=== PATIENT | male | born 1975 | race Caucasian/White ===

== ENCOUNTER → 2018-08-29 | Outpatient (CLI) | payer MEDICARE, OTHER ==
[2015-08-10 09:59] VITALS: BP 106/51
[~2018-08-29] MED LIST: ACET325T9 PO; ACET500T68 PO; BARIUM SULFATE 60% 355 ML SUSP PO ONE; CIPR500T94 PO; DIVA500T17 PO; DOCU100T5 PO; ESCITALOPRAM OX10 MG PO; FLUT16SP NS; GUAI100L12 PO; LACT10SO26 PO; LORA1TAB37 PO; MESA0.372 PO; METR250T PO; MONT10TA49 PO; MULT1TAB52 PO; OXCA300O PO; OXCA300T19 PO; POLY255P11 PO; POTA10TA PO; RISP1TAB3 PO; TRAZ150T49 PO; [UNRECOGNIZED DRUG - CODE] PO
--- NOTE | 2018-08-29 10:02 | RAD ---
Small bowel series, 08/29/2018: HISTORY: Abdominal pain The preliminary abdominal image demonstrates a nonspecific gas pattern. Serial digital images were obtained as well as fluoroscopic spot imaging. 0.4 minutes of fluoroscopy time was utilized. 4 fluoroscopic spot images were recorded. The small bowel loops are of normal caliber. No fold thickening is seen. The contrast material reached the right colon at 90 minutes. The terminal ileum cannot be clearly from other distal ileal loops, however, no distal ileal abnormality is detected. IMPRESSION: No significant abnormality is identified. Electronically signed by: Jean Marie Melendez MD (08/29/2018 9:59 AM) [facility]
== END | disposition home or self-care (01) ==
LOC: RAD 07:18
PROVIDERS: ATTEND Internal Medicine Gastroenterology
DX: R10.9 Unspecified abdominal pain (principal); F63.9 Impulse disorder, unspecified; F84.0 Autistic disorder; F51.01 Primary insomnia; F79 Unspecified intellectual disabilities; N39.44 Nocturnal enuresis; J30.1 Allergic rhinitis due to pollen; R32 Unspecified urinary incontinence; Z79.899 Other long term (current) drug therapy
CPT/HCPCS: 74250

== ENCOUNTER 2019-05-01 12:28 | Observation (INO) | payer MEDICARE, MEDICAID ==
[~2019-05-01] VITALS: Ht 188 cm; Wt 96.0 kg
[~2019-05-01 12:28] MED LIST changes: -BARIUM SULFATE 60% 355 ML SUSP PO ONE
--- NOTE | 2019-05-01 12:51 | PHYS DOC ---
Past Medical History Past Medical History: Constipation, Other Additional Past Medical Histor: mentally challenged/autistic, Crohns, Ileus, impulse control,insomnia, Past Surgical History: No Surgical History Additional Past Surgical Histo: unknown Smoking Status: Never Smoker Alcohol Use: None Drug Use: None Adult General Chief Complaint Chief Complaint: ABDOMINAL PAIN HPI HPI Patient is a 43 year old male with past medical history significant for autism and Crohn's disease and currently follows along with a aircraft electronics technical officer. The patient is brought today by a caregiver from a assisted secondary to worsening abdominal pain over the past 5-6 days with alternating diarrhea and constipation. Patient reportedly saw his aircraft electronics technical officer yesterday and his pain became worse today so he was instructed to come to the ER for further evaluation. No fever or chills have been reported. Pain is moderate to severe with abdominal bloating and distention. Review of Systems Review of Systems All other ROS is negative un Current Medications Current Medications Current Medications Medications (Trade) Dose Ordered Sig/Lee Start Time Stop Time Status Last Admin Dose Admin Fentanyl Citrate (Fentanyl 2ml Vial) 50 mcg 1X ONCE 05/01/19 13:00 05/01/19 13:01 DC 05/01/19 13:12 50 MCG Info (CONTRAST GIVEN -- Rx MONITORING) 1 each PRN DAILY PRN 05/01/19 14:45 05/03/19 14:44 Iohexol (Omnipaque 300 Mg/ml) 75 ml 1X ONCE 05/01/19 14:45 05/01/19 14:46 DC 05/01/19 14:54 75 ML Sodium Chloride 1,000 ml @ 1,000 mls/hr 1X ONCE 05/01/19 13:00 05/01/19 13:59 DC 05/01/19 13:12 1,000 MLS/HR Allergies Allergies Allergies Coded Allergies Type Severity Reaction Last Updated Verified No Known Drug Allergies 08/15/13 No Physical Exam Physical Exam Constitutional: Well developed, well nourished, appears uncomfortable, non-toxic appearance. [] HENT: Normocephalic, atraumatic, bilateral external ears normal, oropharynx moist, no oral exudates, nose normal. [] Eyes: PERRLA, EOMI, conjunctiva normal, no discharge. [] Neck: Normal range of motion, no tenderness, supple, no stridor. [] Cardiovascular:Heart rate regular rhythm, no murmur [] Lungs & Thorax: Bilateral breath sounds clear to auscultation [] Abdomen: Hyperactive bowel sounds and mild to moderate abdominal distention but still soft. She is tenderness to palpation Skin: Warm, dry, no erythema, no rash. [] Back: No tenderness, no CVA tenderness. Extremities: No tenderness, no cyanosis, no clubbing, ROM intact, no edema. [] Neurologic: normal motor function, normal sensory function, no focal deficits noted. [] Current Patient Data Vital Signs Vital Signs Date Time Temp Pulse Resp B/P (MAP) Pulse Ox O2 Delivery O2 Flow Rate FiO2 05/01/19 13:19 72 136/72 (93) Room Air 05/01/19 12:35 98.2 14 98.2 Lab Values Laboratory Tests Test 05/01/19 13:18 White Blood Count 5.5 x10^3/uL (4.0-11.0) Red Blood Count 4.38 x10^6/uL (4.30-5.70) Hemoglobin 13.8 g/dL (13.0-17.5) Hematocrit 40.0 % (39.0-53.0) Mean Corpuscular Volume 91 fL (79-100) Mean Corpuscular Hemoglobin 31 pg (25-35) Mean Corpuscular Hemoglobin Concent 34 g/dL (31-37) Red Cell Distribution Width 13.1 % (11.5-14.5) Platelet Count 159 x10^3/uL (140-400) Neutrophils (%) (Auto) 54 % (31-73) Lymphocytes (%) (Auto) 33 % (24-48) Monocytes (%) (Auto) 12 % (0-9) H Eosinophils (%) (Auto) 1 % (0-3) Basophils (%) (Auto) 1 % (0-3) Neutrophils # (Auto) 3.0 x10^3/uL (1.8-7.7) Lymphocytes # (Auto) 1.8 x10^3/uL (1.0-4.8) Monocytes # (Auto) 0.7 x10^3/uL (0.0-1.1) Eosinophils # (Auto) 0.1 x10^3/uL (0.0-0.7) Basophils # (Auto) 0.0 x10^3/uL (0.0-0.2) Sodium Level 136 mmol/L (136-145) Potassium Level 3.5 mmol/L (3.5-5.1) Chloride Level 100 mmol/L (98-107) Carbon Dioxide Level 26 mmol/L (21-32) Anion Gap 10 (6-14) Blood Urea Nitrogen 3 mg/dL (8-26) L Creatinine 0.6 mg/dL (0.7-1.3) L Estimated GFR (Cockcroft-Gault) 145.7 BUN/Creatinine Ratio 5 (6-20) L Glucose Level 107 mg/dL (70-99) H Calcium Level 8.6 mg/dL (8.5-10.1) Total Bilirubin 0.3 mg/dL (0.2-1.0) Aspartate Amino Transferase (AST) 14 U/L (15-37) L Alanine Aminotransferase (ALT) 33 U/L (16-63) Alkaline Phosphatase 69 U/L (46-116) Total Protein 6.2 g/dL (6.4-8.2) L Albumin 3.3 g/dL (3.4-5.0) L Albumin/Globulin Ratio 1.1 (1.0-1.7) Lipase 81 U/L (73-393) Laboratory Tests 05/01/19 13:18 Laboratory Tests 05/01/19 13:18 EKG EKG [] Radiology/Procedures Radiology/Procedures EXAM: Frontal view of the chest, AP views of the abdomen in upright and supine positions. CLINICAL INDICATION: Abdominal pain and distention COMPARISON: None. FINDINGS and IMPRESSION: The heart is not enlarged. Mediastinal and hilar contours are normal. Right infrahilar and lung base airspace opacities likely atelectasis or developing consolidation. No pleural effusion or pneumothorax. No abnormal small or large bowel dilatation. Diffuse gaseous distention of the colon. No abnormal soft tissue mass effect. No suspicious calcifications are seen. No free intraperitoneal gas.[] EXAM: CT Abdomen and Pelvis with IV contrast CLINICAL HISTORY: Abd pain/distension . COMPARISON: none TECHNIQUE: Helical CT of the abdomen and pelvis was performed following the administration of IV contrast. Axial, coronal and sagittal reformatted images were generated. ---PQRS compliance statement - One or more of the following individualized dose reduction techniques were utilized for this study: 1. Automated exposure control 2. Adjustment of the mA and/or kV according to patient size 3. Use of iterative reconstruction technique--- FINDINGS: Lower chest: Lung bases are clear. Abdomen and pelvis: Liver and biliary system: Subcentimeter hypodense posterior right hepatic lobe lesion is too small to accurately characterize. Gallbladder is normal. No biliary ductal dilatation. Spleen: Unremarkable Pancreas: Unremarkable Adrenal glands: Unremarkable Kidneys: Symmetric nephrograms. No hydronephrosis. No hydroureter. Lymph nodes/retroperitoneum: No abdominal or pelvic lymphadenopathy. Vessels: Aorta is normal in caliber. Bowel/Peritoneal cavity: Moderate colonic stool content is seen. No small or large bowel dilatation. No bowel obstruction. Appendix is normal. No abdominal or pelvic ascites. Abdominal wall: Small fat-containing periumbilical hernia. Bladder: Bladder is distended, which can be correlated for possible voluntary or involuntary causes of urinary retention. Bones: Osseous structures are unremarkable. IMPRESSION: 1. No bowel obstruction. 2. Moderate colonic stool content is seen. No small or large bowel dilatation. 3. Bladder is distended, which can be correlated for possible voluntary or involuntary causes of urinary retention. 4. Appendix is normal. Electronically signed by: Antonio Troncoso MD (05/01/2019 3:08 PM) [facility] Course & Med Decision Making Course & Med Decision Making Pertinent Labs and Imaging studies reviewed. (See chart for details) 1248: I spoke to any who is a physician licensed investment sales assistant at the patient's gastroenterology clinic who informed me the patient has been to the ED 3 times within the past week and has had a CT scan which showed what appeared to be increased inflammation consistent with Crohn's flare. Since the patient has had worsening pain the gastroenterology clinic physicians would like the patient admitted for colonoscopy and pain control. The patient has failed outpatient prep for colonoscopy. No fever or chills have been reported recently. We will start an IV and given IV fluids and pain medication and check labs and obtain abdominal x-ray. 1417: W/u unremarkable except for gaseous distension of the colon. Will discuss with GI regarding admission. 1430: I spoke with Dr. Moya, GI, who would like repeat CT and discuss admission vs outpatient f/u. 1613: Patient's CT scan shows moderate fecal retention. The patient is started taking MiraLAX and lactulose for bowel regimen. I spoke with GI again regarding this patient and they will admit for possible scope tomorrow. Dragon Disclaimer Dragon Disclaimer This electronic medical record was generated, in whole or in part, using a voice recognition dictation system. Departure Departure Impression: Primary Impression: Abdominal pain Additional Impressions: Abdominal distension Fecal retention Disposition: ADMITTED INPATIENT Admitting Physician: YUNG (Dr. Castro) Condition: STABLE Referrals: AMNA GARCIA MD (PCP) Problem Qualifiers MARILIN GEE DO May 01, 2019 12:51
[2019-05-01] MEDS ORDERED: fentaNYL PF VIAL 100 MCG/2 ML VIAL IVP ONE (13:00)
[2019-05-01] MEDS ORDERED: IV NORMAL SALINE 1000ML BAG 1,000 ML IV ONE (13:00)
[2019-05-01 13:27] LABS: BASO % 1 % (0-3); EOS # 0.1 x10^3/uL (0.0-0.7); EOS % 1 % (0-3); HEMOGLOBIN 13.8 g/dL (13.0-17.5); LYMPH # 1.8 x10^3/uL (1.0-4.8); LYMPH % 33 % (24-48); MEAN CORPUSCULAR HEMOGLOBIN 31 pg (25-35); MEAN CORPUSCULAR HGB CONC 34 g/dL (31-37); MEAN CORPUSCULAR VOLUME 91 fL (79-100); MONO # 0.7 x10^3/uL (0.0-1.1); MONO % 12 % (0-9); NEUT % 54 % (31-73); PLATELET COUNT 159 x10^3/uL (140-400); RED BLOOD COUNT 4.38 x10^6/uL (4.30-5.70); RED CELL DISTRIBUTION WIDTH 13.1 % (11.5-14.5); WHITE BLOOD COUNT 5.5 x10^3/uL (4.0-11.0)
[2019-05-01 13:41] LABS: CALCIUM 8.6 mg/dL (8.5-10.1); CREATININE 0.6 mg/dL (0.7-1.3); GFR 145.7; POTASSIUM 3.5 mmol/L (3.5-5.1)
[2019-05-01 13:48] LABS: ALBUMIN 3.3 g/dL (3.4-5.0); ALBUMIN/GLOBULIN RATIO 1.1 (1.0-1.7); TOTAL BILIRUBIN 0.3 mg/dL (0.2-1.0); TOTAL PROTEIN 6.2 g/dL (6.4-8.2)
--- NOTE | 2019-05-01 14:06 | RAD ---
EXAM: Frontal view of the chest, AP views of the abdomen in upright and supine positions. CLINICAL INDICATION: Abdominal pain and distention COMPARISON: None. FINDINGS and IMPRESSION: The heart is not enlarged. Mediastinal and hilar contours are normal. Right infrahilar and lung base airspace opacities likely atelectasis or developing consolidation. No pleural effusion or pneumothorax. No abnormal small or large bowel dilatation. Diffuse gaseous distention of the colon. No abnormal soft tissue mass effect. No suspicious calcifications are seen. No free intraperitoneal gas. Electronically signed by: Antonio Troncoso MD (05/01/2019 2:03 PM) [facility]
[2019-05-01] MEDS ORDERED: IOHEXOL 300 MG/ML 100ML VIAL. IV ONE (14:45)
[2019-05-01] MEDS ORDERED: CONTRAST GIVEN. MC PRN (14:45)
--- NOTE | 2019-05-01 15:11 | RAD ---
EXAM: CT Abdomen and Pelvis with IV contrast CLINICAL HISTORY: Abd pain/distension . COMPARISON: none TECHNIQUE: Helical CT of the abdomen and pelvis was performed following the administration of IV contrast. Axial, coronal and sagittal reformatted images were generated. ---PQRS compliance statement - One or more of the following individualized dose reduction techniques were utilized for this study: 1. Automated exposure control 2. Adjustment of the mA and/or kV according to patient size 3. Use of iterative reconstruction technique--- FINDINGS: Lower chest: Lung bases are clear. Abdomen and pelvis: Liver and biliary system: Subcentimeter hypodense posterior right hepatic lobe lesion is too small to accurately characterize. Gallbladder is normal. No biliary ductal dilatation. Spleen: Unremarkable Pancreas: Unremarkable Adrenal glands: Unremarkable Kidneys: Symmetric nephrograms. No hydronephrosis. No hydroureter. Lymph nodes/retroperitoneum: No abdominal or pelvic lymphadenopathy. Vessels: Aorta is normal in caliber. Bowel/Peritoneal cavity: Moderate colonic stool content is seen. No small or large bowel dilatation. No bowel obstruction. Appendix is normal. No abdominal or pelvic ascites. Abdominal wall: Small fat-containing periumbilical hernia. Bladder: Bladder is distended, which can be correlated for possible voluntary or involuntary causes of urinary retention. Bones: Osseous structures are unremarkable. IMPRESSION: 1. No bowel obstruction. 2. Moderate colonic stool content is seen. No small or large bowel dilatation. 3. Bladder is distended, which can be correlated for possible voluntary or involuntary causes of urinary retention. 4. Appendix is normal. Electronically signed by: Antonio Troncoso MD (05/01/2019 3:08 PM) [facility]
[2019-05-01] MEDS ORDERED: ONDANSETRON PF 4 MG/2 ML VIAL. IV PRN ×2 (16:15→16:30)
[2019-05-01] MEDS ORDERED: fentaNYL PF VIAL 100 MCG/2 ML VIAL IV PRN (16:15)
[2019-05-01] MEDS ORDERED: ACETAMINOPHEN 500 MG TABLET PO PRN (16:30)
[2019-05-01] MEDS ORDERED: ALBUTEROL SULFATE 2.5 MG/3 ML NEBU. NEB PRN (16:30)
[2019-05-01] MEDS ORDERED: guaiFENesin ORAL 200 MG/10 ML LIQUID. PO PRN (16:30)
[2019-05-01] MEDS ORDERED: ACETAMINOPHEN 325 MG TABLET. PO PRN (16:30)
[2019-05-01] MEDS ORDERED: DOCUSATE SODIUM 100 MG CAPSULE. PO PRN (16:30)
[2019-05-01] MEDS ORDERED: ZOLPIDEM 5 MG TABLET. PO PRN (16:30)
--- NOTE | 2019-05-01 16:59 | PDOC2 ---
GI CONSULT Reason For Consult: Crohn's, abd pain HPI: HPI: 43 y/o male seen in ER. H/o autism w/ some aggressive behavior, mostly non- verbal. Mother Laxmi and caregiver Shannan provide history, also previously d/w PA from our office and ER physician. Chronic abd pain for >1 year w/ intermittent flares of more severe pain. Pain has been worse for about a week - usually not this bad and doesn't last this long. Caregiver thinks the pain is spasming and cramping because he seems okay and then suddenly doubles over in pain and gets very agitated. Seems mostly located in the middle. Also holds abdomen when stooling sometimes. H/o alternating bowel habits - chronic and unchanged - either watery and splattering or straining to pass very small soft stools. Caregiver says it's not unusual for him to strain and try to have a stool 12 times in an 8 hour period without much result. Takes Miralax daily. Pain might be better after stooling but hard to tell. Also improved for a time w/ dicyclomine. Associated w/ decreased appetite - mostly has been requesting cereal. No vomiting. Unclear if has nausea or reflux. No dysphagia they have observed. No hematochezia or melena. No weight loss. Abdomen has been intermittently more distended over the past year - usually improved after passing gas. During the past week, they have been to [facility] the [facility], [facility] ER on the [place] (where a CT showed "inflammation of the stomach lining" per caregiver - these records were requested but not received at our office), and had two crisis visits w/ psych @ [facility] (last on Sunday I believe). He was seen in our office and outpt EGD and colonoscopy were recommended; however, mother and caregiver state that he would not tolerate prepping at home because he would not understand why he would need to keep to a clear liquid diet and would likely help himself to other available food and become agitated. They are also currently concerned about him taking his usual psych meds. He has a h/o Crohn's disease. Had colonoscopy by Dr. Larua Wilson in 09/2013 - cannot view procedure report but pathology showed chronic colitis w/ acute cryptitis and ill-defined granulomas. Has been on Apriso. Mother reports was hospitalized at [facility] in [place] in 06/2018 with a blockage. Says surgery was discussed but "then he passed it." SBFT in 08/2018 (done here at [facility]) was unrevealing. No liver, GB, pancreas, or PUD history. No previous EGD. Today's labs and CT as below. PMH: PMH: autism, Crohn's FH: Family History: Cancer (pancreatic - father), Hypertension Social History: Smoke: No ALCOHOL: none Drugs: None ROS: Per mother and caregiver as above. Vitals: Vitals: Vital Signs Date Time Temp Pulse Resp B/P (MAP) Pulse Ox O2 Delivery O2 Flow Rate FiO2 05/01/19 13:19 72 136/72 (93) Room Air 05/01/19 12:35 98.2 14 98.2 Labs: Labs: Laboratory Tests Test 05/01/19 13:18 White Blood Count 5.5 x10^3/uL (4.0-11.0) Red Blood Count 4.38 x10^6/uL (4.30-5.70) Hemoglobin 13.8 g/dL (13.0-17.5) Hematocrit 40.0 % (39.0-53.0) Mean Corpuscular Volume 91 fL (79-100) Mean Corpuscular Hemoglobin 31 pg (25-35) Mean Corpuscular Hemoglobin Concent 34 g/dL (31-37) Red Cell Distribution Width 13.1 % (11.5-14.5) Platelet Count 159 x10^3/uL (140-400) Neutrophils (%) (Auto) 54 % (31-73) Lymphocytes (%) (Auto) 33 % (24-48) Monocytes (%) (Auto) 12 % (0-9) Eosinophils (%) (Auto) 1 % (0-3) Basophils (%) (Auto) 1 % (0-3) Neutrophils # (Auto) 3.0 x10^3/uL (1.8-7.7) Lymphocytes # (Auto) 1.8 x10^3/uL (1.0-4.8) Monocytes # (Auto) 0.7 x10^3/uL (0.0-1.1) Eosinophils # (Auto) 0.1 x10^3/uL (0.0-0.7) Basophils # (Auto) 0.0 x10^3/uL (0.0-0.2) Sodium Level 136 mmol/L (136-145) Potassium Level 3.5 mmol/L (3.5-5.1) Chloride Level 100 mmol/L (98-107) Carbon Dioxide Level 26 mmol/L (21-32) Anion Gap 10 (6-14) Blood Urea Nitrogen 3 mg/dL (8-26) Creatinine 0.6 mg/dL (0.7-1.3) Estimated GFR (Cockcroft-Gault) 145.7 BUN/Creatinine Ratio 5 (6-20) Glucose Level 107 mg/dL (70-99) Calcium Level 8.6 mg/dL (8.5-10.1) Total Bilirubin 0.3 mg/dL (0.2-1.0) Aspartate Amino Transf (AST/SGOT) 14 U/L (15-37) Alanine Aminotransferase (ALT/SGPT) 33 U/L (16-63) Alkaline Phosphatase 69 U/L (46-116) Total Protein 6.2 g/dL (6.4-8.2) Albumin 3.3 g/dL (3.4-5.0) Albumin/Globulin Ratio 1.1 (1.0-1.7) Lipase 81 U/L (73-393) Allergies: Coded Allergies: No Known Drug Allergies (Unverified , 08/15/13) Medications: Current Medications Medications (Trade) Dose Ordered Sig/Lee Route PRN Reason Start Time Stop Time Status Last Admin Dose Admin Fentanyl Citrate (Fentanyl 2ml Vial) 50 mcg 1X ONCE IVP 05/01/19 13:00 05/01/19 13:01 DC 05/01/19 13:12 Sodium Chloride 1,000 ml @ 1,000 mls/hr 1X ONCE IV 05/01/19 13:00 05/01/19 13:59 DC 05/01/19 13:12 Iohexol (Omnipaque 300 Mg/ml) 75 ml 1X ONCE IV 05/01/19 14:45 05/01/19 14:46 DC 05/01/19 14:54 Imaging: Imaging: [facility] 05/01 IMPRESSION: The heart is not enlarged. Mediastinal and hilar contours are normal. Right infrahilar and lung base airspace opacities likely atelectasis or developing consolidation. No pleural effusion or pneumothorax. No abnormal small or large bowel dilatation. Diffuse gaseous distention of the colon. No abnormal soft tissue mass effect. No suspicious calcifications are seen. No free intraperitoneal gas. CT A/P w/ IV contrast 05/01 FINDINGS: Lower chest: Lung bases are clear. Abdomen and pelvis: Liver and biliary system: Subcentimeter hypodense posterior right hepatic lobe lesion is too small to accurately characterize. Gallbladder is normal. No biliary ductal dilatation. Spleen: Unremarkable Pancreas: Unremarkable Adrenal glands: Unremarkable Kidneys: Symmetric nephrograms. No hydronephrosis. No hydroureter. Lymph nodes/retroperitoneum: No abdominal or pelvic lymphadenopathy. Vessels: Aorta is normal in caliber. Bowel/Peritoneal cavity: Moderate colonic stool content is seen. No small or large bowel dilatation. No bowel obstruction. Appendix is normal. No abdominal or pelvic ascites. Abdominal wall: Small fat-containing periumbilical hernia. Bladder: Bladder is distended, which can be correlated for possible voluntary or involuntary causes of urinary retention. Bones: Osseous structures are unremarkable. IMPRESSION: 1. No bowel obstruction. 2. Moderate colonic stool content is seen. No small or large bowel dilatation. 3. Bladder is distended, which can be correlated for possible voluntary or involuntary causes of urinary retention. 4. Appendix is normal. PE: GEN: NAD HEENT: Atraumatic, PERRL LUNGS: CTAB HEART: RRR ABD: NABS, S/ND/NT - per advice of caregiver and mother, I asked "hurt or not?" while palpating - he says "not" in each location EXTREMITY: No edema SKIN: left ankle/foot w/ purple bruising, laceration on forehead - caregiver says he has a h/o banging his head on the wall when agitated but isn't sure what happened to his foot NEURO/PSYCH: A & O 3 A/P: A/P: Acute on chronic abdominal pain, decreased appetite Irregular bowel habits - chronic - ?constipation Crohn's - on colonoscopy in 2013, on Apriso, normal SBFT 08/2018 ?h/o bowel obstruction - at [facility] in 06/2018 Autism -- Plans to admit to hospitalist. Clear liquids okay for now, okay to take normal meds including mesalamine. Add empiric acid-[employer]. Check CRP. Request records from CT at [facility]. Dr. Moya will see him this evening, Dr. Nice returns tomorrow. SHANNAN LYON May 01, 2019 16:59
[2019-05-01] MEDS ORDERED: risperiDONE 0.25 MG TABLET. PO PRN (17:00)
[2019-05-01] MEDS ORDERED: DICYCLOMINE HCL 10 MG CAPSULE PO PRN (17:00)
--- NOTE | 2019-05-01 17:01 | PDOC1 ---
History and Physical Date of Admission Date of Admission 05/01/19 Source Source: Chart review History of Present Illness History of Present Illness Patient is a 43-year-old autistic gentleman with lives in a longterm at [facility] who was in his usual state of health until approximately 5 days prior to his admission. History is taken from report of ER physician and with the help from patient's mother who is at bedside. Patient is somewhat verbal but unable to communicate and provide details for the history. Story is that he was diagnosed with Crohn's disease in 2013 and seems to have been well controlled but 5 days prior to his admission the patient started experiencing abdominal discomfort seems like and this prompted behavioral changes with him actually banging his head on the wall due to the discomfort. Given that the patient is unable to communicate his symptoms he gets quite frustrated. At the time of my note the patient seems to be calm but there is evidence of trauma on his forehead as a consequence of the events during this week. He is not guarding his abdomen no fever or chills have been reported no recent changes to his medications he has had increased in the pattern of his stools and also has had changes in the caliber of stools. Patient has not had hematochezia no melanotic stools have been reported. Have been asked to admit the patient to our service for GI evaluation Past Medical History Cardiovascular: No pertinent hx Pulmonary: No pertinent hx GI: Constipation, Hemorrhoids, Other Heme/Onc: No pertinent hx Hepatobiliary: No pertinent hx Psych: Other Rheumatologic: No pertinent hx Infectious disease: No pertinent hx Renal/: No pertinent hx Endocrine: No pertinent hx Past Surgical History Past Surgical History: No pertinent history Family History Family History: No Significant Current Problem List Problem List Problems Medical Problems: (1) Abdominal distension Status: Acute (2) Abdominal pain Status: Acute (3) Fecal retention Status: Acute Current Medications Current Medications Current Medications Medications (Trade) Dose Ordered Sig/Lee Start Time Stop Time Status Last Admin Dose Admin Acetaminophen (Tylenol) 500 mg PRN Q6HRS PRN 05/01/19 16:30 05/01/19 16:46 DC Albuterol Sulfate (Ventolin Neb Soln) 2.5 mg PRN Q4HRS PRN 05/01/19 16:30 Divalproex Sodium (Depakote Er) 500 mg DAILY 05/02/19 09:00 UNV Docusate Sodium (Colace) 100 mg PRN BID PRN 05/01/19 16:30 Fentanyl Citrate (Fentanyl 2ml Vial) 50 mcg PRN Q3HRS PRN 05/01/19 16:15 Fluticasone Propionate (Flonase) 1 spray DAILY 05/02/19 09:00 UNV Guaifenesin (Robitussin) 200 mg PRN Q4HRS PRN 05/01/19 16:30 Info (CONTRAST GIVEN -- Rx MONITORING) 1 each PRN DAILY PRN 05/01/19 14:45 05/03/19 14:44 Iohexol (Omnipaque 300 Mg/ml) 75 ml 1X ONCE 05/01/19 14:45 05/01/19 14:46 DC 05/01/19 14:54 75 ML Lorazepam (Ativan) 0.5 mg PRN Q4HRS PRN 05/01/19 16:30 Montelukast Sodium (Singulair) 10 mg DAILY 05/02/19 09:00 Non-Formulary Medication (Escitalopram Oxalate ) 5 mg DAILY 05/02/19 09:00 UNV Non-Formulary Medication (Lactulose ) 10 gm PRN DAILY 05/01/19 16:30 UNV Non-Formulary Medication (Loratadine/ Pseudoephedrine (Loratadine-D 24HR Tablet)) 1 each PRN DAILY PRN 05/01/19 16:30 UNV Non-Formulary Medication (Mesalamine (Apriso)) 1.5 gm DAILY 05/02/19 09:00 UNV Non-Formulary Medication (Multivitamin (Multivitamins)) 1 each DAILY 05/02/19 09:00 UNV Non-Formulary Medication (Potassium Chloride (K-Tab)) 10 meq DAILY 05/02/19 09:00 UNV Non-Formulary Medication (Risperidone (Risperidone Odt)) 0.5 mg PRN BID PRN 05/01/19 16:30 UNV Non-Formulary Medication (Trazodone Hcl ) 1 tab QHS 05/01/19 21:00 UNV Ondansetron HCl (Zofran) 4 mg PRN Q4HRS PRN 05/01/19 16:30 Oxcarbazepine (Trileptal) 300 mg BID 05/01/19 21:00 UNV Polyethylene Glycol (miraLAX Powder BULK BOTTLE) 17 gm DAILY 05/02/19 09:00 Risperidone (RisperDAL) 1 mg QID 05/01/19 17:00 UNV Sodium Chloride 1,000 ml @ 1,000 mls/hr 1X ONCE 05/01/19 13:00 05/01/19 13:59 DC 05/01/19 13:12 1,000 MLS/HR Zolpidem Tartrate (Ambien) 5 mg PRN QHS PRN 05/01/19 16:30 Allergies Allergies Allergies Coded Allergies Type Severity Reaction Last Updated Verified No Known Drug Allergies 08/15/13 No ROS Review of System CONSTITUTIONAL: No fever or chills EYES: No recent changes SKIN: No rash or itching CARDIOVASCULAR: No chest pain, syncope, palpitations, or edema RESPIRATORY: No SOB or cough GASTROINTESTINAL: No nausea, vomiting or abdominal pain NEUROLOGICAL: No headaches or weakness ENDOCRINE: No cold or heat intolerance GENITOURINARY: No urgency or frequency of urination MUSCULOSKELETAL: No back pain or joint pain LYMPHATICS: No enlarged lymph nodes PSYCHIATRIC: No anxiety or depression Physical Exam Physical Exam GEN.: No apparent distress. Alert and oriented. HEENT: Head is normocephalic, trauma to the forehead approximately 2 cm linear wound in the healing process NECK: Supple. LUNGS: Clear to auscultation. HEART: RRR, S1, S2 present. Peripheral pulses intact ABDOMEN: Soft, nontender. Positive bowel sounds. EXTREMITIES: Without any cyanosis. NEUROLOGIC: Cranial nerves II-12 intact no motor or sensory deficits appreciated PSYCHIATRIC: Unable to assess SKIN: No ulcerations Vitals Vitals Vital Signs Date Time Temp Pulse Resp B/P (MAP) Pulse Ox O2 Delivery O2 Flow Rate FiO2 05/01/19 13:19 72 136/72 (93) Room Air 05/01/19 12:35 98.2 14 98.2 Labs Labs Laboratory Tests Test 05/01/19 13:18 White Blood Count 5.5 x10^3/uL (4.0-11.0) Red Blood Count 4.38 x10^6/uL (4.30-5.70) Hemoglobin 13.8 g/dL (13.0-17.5) Hematocrit 40.0 % (39.0-53.0) Mean Corpuscular Volume 91 fL (79-100) Mean Corpuscular Hemoglobin 31 pg (25-35) Mean Corpuscular Hemoglobin Concent 34 g/dL (31-37) Red Cell Distribution Width 13.1 % (11.5-14.5) Platelet Count 159 x10^3/uL (140-400) Neutrophils (%) (Auto) 54 % (31-73) Lymphocytes (%) (Auto) 33 % (24-48) Monocytes (%) (Auto) 12 % (0-9) Eosinophils (%) (Auto) 1 % (0-3) Basophils (%) (Auto) 1 % (0-3) Neutrophils # (Auto) 3.0 x10^3/uL (1.8-7.7) Lymphocytes # (Auto) 1.8 x10^3/uL (1.0-4.8) Monocytes # (Auto) 0.7 x10^3/uL (0.0-1.1) Eosinophils # (Auto) 0.1 x10^3/uL (0.0-0.7) Basophils # (Auto) 0.0 x10^3/uL (0.0-0.2) Sodium Level 136 mmol/L (136-145) Potassium Level 3.5 mmol/L (3.5-5.1) Chloride Level 100 mmol/L (98-107) Carbon Dioxide Level 26 mmol/L (21-32) Anion Gap 10 (6-14) Blood Urea Nitrogen 3 mg/dL (8-26) Creatinine 0.6 mg/dL (0.7-1.3) Estimated GFR (Cockcroft-Gault) 145.7 BUN/Creatinine Ratio 5 (6-20) Glucose Level 107 mg/dL (70-99) Calcium Level 8.6 mg/dL (8.5-10.1) Total Bilirubin 0.3 mg/dL (0.2-1.0) Aspartate Amino Transf (AST/SGOT) 14 U/L (15-37) Alanine Aminotransferase (ALT/SGPT) 33 U/L (16-63) Alkaline Phosphatase 69 U/L (46-116) Total Protein 6.2 g/dL (6.4-8.2) Albumin 3.3 g/dL (3.4-5.0) Albumin/Globulin Ratio 1.1 (1.0-1.7) Lipase 81 U/L (73-393) Laboratory Tests Test 05/01/19 13:18 White Blood Count 5.5 x10^3/uL (4.0-11.0) Red Blood Count 4.38 x10^6/uL (4.30-5.70) Hemoglobin 13.8 g/dL (13.0-17.5) Hematocrit 40.0 % (39.0-53.0) Mean Corpuscular Volume 91 fL (79-100) Mean Corpuscular Hemoglobin 31 pg (25-35) Mean Corpuscular Hemoglobin Concent 34 g/dL (31-37) Red Cell Distribution Width 13.1 % (11.5-14.5) Platelet Count 159 x10^3/uL (140-400) Neutrophils (%) (Auto) 54 % (31-73) Lymphocytes (%) (Auto) 33 % (24-48) Monocytes (%) (Auto) 12 % (0-9) Eosinophils (%) (Auto) 1 % (0-3) Basophils (%) (Auto) 1 % (0-3) Neutrophils # (Auto) 3.0 x10^3/uL (1.8-7.7) Lymphocytes # (Auto) 1.8 x10^3/uL (1.0-4.8) Monocytes # (Auto) 0.7 x10^3/uL (0.0-1.1) Eosinophils # (Auto) 0.1 x10^3/uL (0.0-0.7) Basophils # (Auto) 0.0 x10^3/uL (0.0-0.2) Sodium Level 136 mmol/L (136-145) Potassium Level 3.5 mmol/L (3.5-5.1) Chloride Level 100 mmol/L (98-107) Carbon Dioxide Level 26 mmol/L (21-32) Anion Gap 10 (6-14) Blood Urea Nitrogen 3 mg/dL (8-26) Creatinine 0.6 mg/dL (0.7-1.3) Estimated GFR (Cockcroft-Gault) 145.7 BUN/Creatinine Ratio 5 (6-20) Glucose Level 107 mg/dL (70-99) Calcium Level 8.6 mg/dL (8.5-10.1) Total Bilirubin 0.3 mg/dL (0.2-1.0) Aspartate Amino Transf (AST/SGOT) 14 U/L (15-37) Alanine Aminotransferase (ALT/SGPT) 33 U/L (16-63) Alkaline Phosphatase 69 U/L (46-116) Total Protein 6.2 g/dL (6.4-8.2) Albumin 3.3 g/dL (3.4-5.0) Albumin/Globulin Ratio 1.1 (1.0-1.7) Lipase 81 U/L (73-393) VTE Prophylaxis Ordered VTE Prophylaxis Devices: Yes VTE Pharmacological Prophylaxi: No Assessment/Plan Assessment/Plan Abdominal pain Crohn's disease Constipation? Autism Plan Consult GI Resume home meds Caregiver at [facility] is bringing behavioral plan so nursing staff and ancillary staff know how to deal with his behavior Further recommendations based on the clinical course DVT prophylaxis with SCD EVAN WIGGINS MD May 01, 2019 17:01
[2019-05-01] MEDS ORDERED: LACTULOSE 20 GM/30 ML SOLUTION. PO PRN (17:15)
--- NOTE | 2019-05-01 18:07 | NUR ---
This RN received report from HAYLEY Rg in ER at 1730. Pt arrived on unit at approx 1800 with family at bedside. Pt in bed with two side rails up, call light within reach. Dinner tray ordered for pt by this RN. Will continue to monitor.
[2019-05-01 18:15] VITALS: BP 166/88
[2019-05-01] MEDS: risperiDONE 1 MG TABLET. PO SCH ×2 (18:30→20:04)
[2019-05-01] MEDS: OXcarbazepine 300 MG TABLET PO SCH (20:03)
[2019-05-01] MEDS: LORazepam 0.5 MG TABLET PO PRN (20:04)
[2019-05-01] MEDS ORDERED: FAMOTIDINE 20 MG TABLET. PO SCH (21:00)
[2019-05-01] MEDS ORDERED: DIVALPROEX EXTENDED RELEASE 500 MG TAB.ER.24H. PO SCH (21:00)
[2019-05-01] MEDS ORDERED: traZODone 50 MG TABLET. PO SCH (21:00)
[2019-05-01] MEDS ORDERED: DICY20TA3 PO (22:47)
[2019-05-01] MEDS ORDERED: RISP1TAB3 PO (22:47)
[2019-05-01] MEDS ORDERED: RISP0.2516 PO (22:47)
[2019-05-01] MEDS ORDERED: POTA20TA4 PO (22:47)
[2019-05-01] MEDS ORDERED: LORA-434 PO (22:47)
[2019-05-01] MEDS ORDERED: QUET50TA5 PO (22:47)
[2019-05-01] MEDS ORDERED: RISP2TAB3 PO (22:47)
[2019-05-01] MEDS ORDERED: PROP20TA PO (22:47)
[2019-05-01] MEDS ORDERED: DIPH25TA24 PO (22:47)
[2019-05-02 03:30] VITALS: BP 110/66
[2019-05-02] MEDS: LORazepam 0.5 MG TABLET PO PRN (06:32)
[2019-05-02 07:00] VITALS: BP 150/86
[2019-05-02] MEDS ORDERED: POLYETHYLENE GLYCOL 3350 BTL 238 GM POWDER PO ONE (07:45)
[2019-05-02] MEDS ORDERED: POTASSIUM CHLORIDE 10 MEQ TABLET.ER. PO SCH (08:00)
[2019-05-02] MEDS: risperiDONE 1 MG TABLET. PO SCH ×3 (08:56→16:10)
[2019-05-02] MEDS: OXcarbazepine 300 MG TABLET PO SCH (08:56)
[2019-05-02] MEDS ORDERED: MULTIVITAMIN with MINERAL TABLET. PO SCH (09:00)
[2019-05-02] MEDS ORDERED: POLYETHYLENE GLYCOL 3350 17 GM PACKET. PO SCH (09:00)
[2019-05-02] MEDS ORDERED: CETIRIZINE HCL 10 MG TABLET. PO PRN (09:00)
[2019-05-02] MEDS ORDERED: FLUTICASONE 50MCG/NASAL SPRAY 16GM BOTTLE. NS SCH (09:00)
[2019-05-02] MEDS ORDERED: MONTELUKAST SODIUM 10 MG TABLET. PO SCH (09:00)
[2019-05-02] MEDS ORDERED: DIVALPROEX EXTENDED RELEASE 500 MG TAB.ER.24H. PO SCH (09:00)
[2019-05-02] MEDS ORDERED: CITALOPRAM 10 MG TABLET. PO SCH (09:00)
[2019-05-02] MEDS ORDERED: MESALAMINE 1.5 GM PO SCH (09:00)
[2019-05-02 11:00] VITALS: BP 105/68
--- NOTE | 2019-05-02 11:07 | PDOC ---
PROGRESS NOTES Chief Complaint Chief Complaint Abdominal pain currently improved Crohn's disease Constipation? Autism History of Present Illness History of Present Illness No acute events reported overnight, case discussed with nursing staff patient in no acute distress no complaints during my visit Vitals Vitals Vital Signs Date Time Temp Pulse Resp B/P (MAP) Pulse Ox O2 Delivery O2 Flow Rate FiO2 05/02/19 07:00 97.5 64 18 150/86 (107) 94 Room Air 97.5 Physical Exam Physical Exam GEN.: No apparent distress. Alert and oriented. HEENT: Head is normocephalic, trauma to the forehead approximately 2 cm linear wound in the healing process NECK: Supple. LUNGS: Clear to auscultation. HEART: RRR, S1, S2 present. Peripheral pulses intact ABDOMEN: Soft, nontender. Positive bowel sounds. EXTREMITIES: Without any cyanosis. NEUROLOGIC: Cranial nerves II-12 intact no motor or sensory deficits appreciated PSYCHIATRIC: Unable to assess SKIN: No ulcerations Labs LABS Laboratory Tests Test 05/01/19 13:18 White Blood Count 5.5 x10^3/uL (4.0-11.0) Red Blood Count 4.38 x10^6/uL (4.30-5.70) Hemoglobin 13.8 g/dL (13.0-17.5) Hematocrit 40.0 % (39.0-53.0) Mean Corpuscular Volume 91 fL (79-100) Mean Corpuscular Hemoglobin 31 pg (25-35) Mean Corpuscular Hemoglobin Concent 34 g/dL (31-37) Red Cell Distribution Width 13.1 % (11.5-14.5) Platelet Count 159 x10^3/uL (140-400) Neutrophils (%) (Auto) 54 % (31-73) Lymphocytes (%) (Auto) 33 % (24-48) Monocytes (%) (Auto) 12 % (0-9) Eosinophils (%) (Auto) 1 % (0-3) Basophils (%) (Auto) 1 % (0-3) Neutrophils # (Auto) 3.0 x10^3/uL (1.8-7.7) Lymphocytes # (Auto) 1.8 x10^3/uL (1.0-4.8) Monocytes # (Auto) 0.7 x10^3/uL (0.0-1.1) Eosinophils # (Auto) 0.1 x10^3/uL (0.0-0.7) Basophils # (Auto) 0.0 x10^3/uL (0.0-0.2) Sodium Level 136 mmol/L (136-145) Potassium Level 3.5 mmol/L (3.5-5.1) Chloride Level 100 mmol/L (98-107) Carbon Dioxide Level 26 mmol/L (21-32) Anion Gap 10 (6-14) Blood Urea Nitrogen 3 mg/dL (8-26) Creatinine 0.6 mg/dL (0.7-1.3) Estimated GFR (Cockcroft-Gault) 145.7 BUN/Creatinine Ratio 5 (6-20) Glucose Level 107 mg/dL (70-99) Calcium Level 8.6 mg/dL (8.5-10.1) Total Bilirubin 0.3 mg/dL (0.2-1.0) Aspartate Amino Transf (AST/SGOT) 14 U/L (15-37) Alanine Aminotransferase (ALT/SGPT) 33 U/L (16-63) Alkaline Phosphatase 69 U/L (46-116) C-Reactive Protein, Quantitative 2.1 mg/L (0-3.3) Total Protein 6.2 g/dL (6.4-8.2) Albumin 3.3 g/dL (3.4-5.0) Albumin/Globulin Ratio 1.1 (1.0-1.7) Lipase 81 U/L (73-393) Assessment and Plan Assessmemt and Plan Problems Medical Problems: (1) Abdominal distension Status: Acute (2) Abdominal pain Status: Acute (3) Fecal retention Status: Acute Comment Review of Relevant I have reviewed the following items masood (where applicable) has been applied. Labs Laboratory Tests Test 05/01/19 13:18 White Blood Count 5.5 x10^3/uL (4.0-11.0) Red Blood Count 4.38 x10^6/uL (4.30-5.70) Hemoglobin 13.8 g/dL (13.0-17.5) Hematocrit 40.0 % (39.0-53.0) Mean Corpuscular Volume 91 fL (79-100) Mean Corpuscular Hemoglobin 31 pg (25-35) Mean Corpuscular Hemoglobin Concent 34 g/dL (31-37) Red Cell Distribution Width 13.1 % (11.5-14.5) Platelet Count 159 x10^3/uL (140-400) Neutrophils (%) (Auto) 54 % (31-73) Lymphocytes (%) (Auto) 33 % (24-48) Monocytes (%) (Auto) 12 % (0-9) Eosinophils (%) (Auto) 1 % (0-3) Basophils (%) (Auto) 1 % (0-3) Neutrophils # (Auto) 3.0 x10^3/uL (1.8-7.7) Lymphocytes # (Auto) 1.8 x10^3/uL (1.0-4.8) Monocytes # (Auto) 0.7 x10^3/uL (0.0-1.1) Eosinophils # (Auto) 0.1 x10^3/uL (0.0-0.7) Basophils # (Auto) 0.0 x10^3/uL (0.0-0.2) Sodium Level 136 mmol/L (136-145) Potassium Level 3.5 mmol/L (3.5-5.1) Chloride Level 100 mmol/L (98-107) Carbon Dioxide Level 26 mmol/L (21-32) Anion Gap 10 (6-14) Blood Urea Nitrogen 3 mg/dL (8-26) Creatinine 0.6 mg/dL (0.7-1.3) Estimated GFR (Cockcroft-Gault) 145.7 BUN/Creatinine Ratio 5 (6-20) Glucose Level 107 mg/dL (70-99) Calcium Level 8.6 mg/dL (8.5-10.1) Total Bilirubin 0.3 mg/dL (0.2-1.0) Aspartate Amino Transf (AST/SGOT) 14 U/L (15-37) Alanine Aminotransferase (ALT/SGPT) 33 U/L (16-63) Alkaline Phosphatase 69 U/L (46-116) C-Reactive Protein, Quantitative 2.1 mg/L (0-3.3) Total Protein 6.2 g/dL (6.4-8.2) Albumin 3.3 g/dL (3.4-5.0) Albumin/Globulin Ratio 1.1 (1.0-1.7) Lipase 81 U/L (73-393) Laboratory Tests Test 05/01/19 13:18 White Blood Count 5.5 x10^3/uL (4.0-11.0) Red Blood Count 4.38 x10^6/uL (4.30-5.70) Hemoglobin 13.8 g/dL (13.0-17.5) Hematocrit 40.0 % (39.0-53.0) Mean Corpuscular Volume 91 fL (79-100) Mean Corpuscular Hemoglobin 31 pg (25-35) Mean Corpuscular Hemoglobin Concent 34 g/dL (31-37) Red Cell Distribution Width 13.1 % (11.5-14.5) Platelet Count 159 x10^3/uL (140-400) Neutrophils (%) (Auto) 54 % (31-73) Lymphocytes (%) (Auto) 33 % (24-48) Monocytes (%) (Auto) 12 % (0-9) Eosinophils (%) (Auto) 1 % (0-3) Basophils (%) (Auto) 1 % (0-3) Neutrophils # (Auto) 3.0 x10^3/uL (1.8-7.7) Lymphocytes # (Auto) 1.8 x10^3/uL (1.0-4.8) Monocytes # (Auto) 0.7 x10^3/uL (0.0-1.1) Eosinophils # (Auto) 0.1 x10^3/uL (0.0-0.7) Basophils # (Auto) 0.0 x10^3/uL (0.0-0.2) Sodium Level 136 mmol/L (136-145) Potassium Level 3.5 mmol/L (3.5-5.1) Chloride Level 100 mmol/L (98-107) Carbon Dioxide Level 26 mmol/L (21-32) Anion Gap 10 (6-14) Blood Urea Nitrogen 3 mg/dL (8-26) Creatinine 0.6 mg/dL (0.7-1.3) Estimated GFR (Cockcroft-Gault) 145.7 BUN/Creatinine Ratio 5 (6-20) Glucose Level 107 mg/dL (70-99) Calcium Level 8.6 mg/dL (8.5-10.1) Total Bilirubin 0.3 mg/dL (0.2-1.0) Aspartate Amino Transf (AST/SGOT) 14 U/L (15-37) Alanine Aminotransferase (ALT/SGPT) 33 U/L (16-63) Alkaline Phosphatase 69 U/L (46-116) C-Reactive Protein, Quantitative 2.1 mg/L (0-3.3) Total Protein 6.2 g/dL (6.4-8.2) Albumin 3.3 g/dL (3.4-5.0) Albumin/Globulin Ratio 1.1 (1.0-1.7) Lipase 81 U/L (73-393) Medications Current Medications Fentanyl Citrate (Fentanyl 2ml Vial) 50 mcg 1X ONCE IVP Last administered on 05/01/19at 13:12; Start 05/01/19 at 13:00; Stop 05/01/19 at 13:01; Status DC Sodium Chloride 1,000 ml @ 1,000 mls/hr 1X ONCE IV Last administered on 05/01/19at 13:12; Start 05/01/19 at 13:00; Stop 05/01/19 at 13:59; Status DC Iohexol (Omnipaque 300 Mg/ml) 75 ml 1X ONCE IV Last administered on 05/01/19at 14:54; Start 05/01/19 at 14:45; Stop 05/01/19 at 14:46; Status DC Info (CONTRAST GIVEN -- Rx MONITORING) 1 each PRN DAILY PRN MC SEE COMMENTS; Start 05/01/19 at 14:45; Stop 05/03/19 at 14:44 Ondansetron HCl (Zofran) 4 mg PRN Q8HRS PRN IV NAUSEA/VOMITING; Start 05/01/19 at 16:15; Stop 05/01/19 at 17:07; Status DC Fentanyl Citrate (Fentanyl 2ml Vial) 50 mcg PRN Q3HRS PRN IV PAIN; Start 05/01/19 at 16:15 Ondansetron HCl (Zofran) 4 mg PRN Q4HRS PRN IV NAUSEA/VOMITING; Start 05/01/19 at 16:30 Zolpidem Tartrate (Ambien) 5 mg PRN QHS PRN PO INSOMNIA; Start 05/01/19 at 16:30 Acetaminophen (Tylenol) 650 mg PRN Q4HRS PRN PO TEMP OVER 100.4F OR MILD PAIN; Start 05/01/19 at 16:30 Docusate Sodium (Colace) 100 mg PRN BID PRN PO CONSTIPATION; Start 05/01/19 at 16:30 Albuterol Sulfate (Ventolin Neb Soln) 2.5 mg PRN Q4HRS PRN NEB SHORTNESS OF BREATH; Start 05/01/19 at 16:30 Guaifenesin (Robitussin) 200 mg PRN Q4HRS PRN PO COUGH; Start 05/01/19 at 16:30 Lorazepam (Ativan) 0.5 mg PRN Q4HRS PRN PO ANXIETY / AGITATION Last administered on 05/02/19at 06:32; Start 05/01/19 at 16:30 Acetaminophen (Tylenol) 500 mg PRN Q6HRS PRN PO MILD PAIN / TEMP; Start 05/01/19 at 16:30; Stop 05/01/19 at 16:46; Status DC Divalproex Sodium (Depakote Er) 1,000 mg HS PO Last administered on 05/01/19at 20:03; Start 05/01/19 at 21:00 Divalproex Sodium (Depakote Er) 500 mg DAILY PO Last administered on 05/02/19at 08:55; Start 05/02/19 at 09:00 Fluticasone Propionate (Flonase) 1 spray DAILY NS Last administered on 05/02/19at 08:56; Start 05/02/19 at 09:00 Montelukast Sodium (Singulair) 10 mg DAILY PO ; Start 05/02/19 at 09:00 Oxcarbazepine (Trileptal) 300 mg BID PO Last administered on 05/02/19at 08:56; Start 05/01/19 at 21:00 Polyethylene Glycol (miraLAX PACKET) 17 gm DAILY PO ; Start 05/02/19 at 09:00 Risperidone (RisperDAL) 1 mg QID PO Last administered on 05/02/19at 08:56; Start 05/01/19 at 17:00 Citalopram Hydrobromide (CeleXA) 10 mg DAILY PO ; Start 05/02/19 at 09:00 Lactulose (Lactulose) 10 gm PRN DAILY PRN PO CONSTIPATION; Start 05/01/19 at 17:15 Cetirizine HCl (ZyrTEC) 10 mg PRN DAILY PRN PO ALLERGIES; Start 05/02/19 at 09:00 Non-Formulary Medication (Mesalamine (Apriso)) 1.5 gm DAILY PO ; Start 05/02/19 at 09:00; Status UNV Multivitamins (Thera M Plus) 1 tab DAILY PO ; Start 05/02/19 at 09:00 Potassium Chloride (Klor-Con) 10 meq DAILYWBKFT PO ; Start 05/02/19 at 08:00 Risperidone (RisperDAL) 0.5 mg PRN BID PRN PO AGITATION; Start 05/01/19 at 17:00 Trazodone HCl (Desyrel) 150 mg QHS PO Last administered on 05/01/19at 20:03; Start 05/01/19 at 21:00 Famotidine (Pepcid) 20 mg QHS PO Last administered on 05/01/19at 20:02; Start 05/01/19 at 21:00 Dicyclomine HCl (Bentyl) 10 mg PRN QID PRN PO abd cramping; Start 05/01/19 at 17:00 Polyethylene Glycol (miraLAX Powder BULK BOTTLE) 238 gm 1X ONCE PO Last administered on 05/02/19at 08:13; Start 05/02/19 at 07:45; Stop 05/02/19 at 07:46; Status DC Active Scripts Active Apriso (Mesalamine) 0.375 Gm Cap.er.24h 1.5 Gm PO DAILY Loratadine-D 24HR Tablet (Loratadine/Pseudoephedrine) 1 Each Tab.er.24h 1 Each PO PRN DAILY PRN Reported Propranolol Hcl 20 Mg Tablet 1 Tab PO BID Ativan (Lorazepam) 1 Mg Tablet 1 Mg PO BID Seroquel (Quetiapine Fumarate) 50 Mg Tablet 1 Tab PO BID Dicyclomine Hcl 20 Mg Tablet 1 Tab PO TID Risperidone Odt (Risperidone) 0.25 Mg Tab.rapdis 1 Mg PO DAILY PRN Risperidone 1 Mg Tablet 1 Tab PO TID Risperidone 2 Mg Tablet 1 Tab PO DAILY Klor-Con M20 (Potassium Chloride) 20 Meq Tab.er.prt 20 Meq PO BID Diphenhydramine Hcl 25 Mg Tablet 25 Mg PO PRN Q4HRS PRN Trazodone Hcl 150 Mg Tablet 1 Tab PO QHS Next Dose 08/20/14 at bedtime Risperidone 1 Mg Tablet 1 Mg PO QID Last Dose 08/20/14 at 2pm Next Dose 08/20/14 at 6pm Acetaminophen 500 Mg Tablet 500 Mg PO PRN Q6HRS PRN Risperidone Odt (Risperidone) 0.5 Mg Tab.rapdis 0.5 Mg PO PRN BID PRN Oxcarbazepine 300 Mg Tablet 300 Mg PO BID Last Dose 08/20/14 at 0900 Next Dose 08/20/14 at bedtime Lactulose 10 Gm/15 Ml Solution 10 Gm PO PRN DAILY Polyethylene Glycol 3350 255 Gm Powder 17 Gm PO DAILY Last Dose 08/20/14 at 0900 Next Dose 08/21/14 AM K-Tab (Potassium Chloride) 10 Meq Tablet.er 10 Meq PO DAILY Last Dose 08/20/14 at 0900 Next Dose 08/21/14 AM Multivitamins (Multivitamin) 1 Each Tablet 1 Each PO DAILY Last Dose 08/20/14 at 0900 Next Dose 08/21/14 AM Singulair Tablet (Montelukast Sodium) 10 Mg Tablet 10 Mg PO DAILY Next dose 08/20/14 at bedtime Fluticasone Propionate Nasal [place] (Fluticasone Propionate) 16 Gm [place].susp 1 [place] NS DAILY Next dose 08/21/14 am Escitalopram Oxalate 10 Mg Tablet 5 Mg PO DAILY Last Dose 08/20/14 at 0900 Next Dose 08/21/14 AM Divalproex Sodium Er (Divalproex Sodium) 500 Mg Tab.er.24h 1,000 Mg PO HS Next Dose 08/20/14 at bedtime Divalproex Sodium Er (Divalproex Sodium) 500 Mg Tab.er.24h 500 Mg PO DAILY Last Dose 08/20/14 at 0900 Next Dose 08/21/14 am Vitals/I & O Vital Sign - Last 24 Hours 05/01/19 05/01/19 05/01/19 05/01/19 12:35 13:12 13:19 18:15 Temp 98.2 98.2 98.2 98.2 Pulse 72 61 Resp 14 18 B/P (MAP) 153/60 (91) 136/72 (93) 166/88 (114) Pulse Ox 94 O2 Delivery Room Air Room Air Room Air Room Air 05/01/19 05/02/19 05/02/19 20:00 03:30 07:00 Temp 97.7 97.5 97.7 97.5 Pulse 62 64 Resp 20 18 B/P (MAP) 110/66 (81) 150/86 (107) Pulse Ox 94 O2 Delivery Room Air Room Air Intake and Output 05/01/19 05/01/19 05/02/19 15:00 23:00 07:00 Intake Total 1000 ml Balance 1000 ml EVAN WIGGINS MD May 02, 2019 11:07
[2019-05-02] MEDS ORDERED: IV RINGERS,LACTATED 1000ML 1,000 ML IV SCH (13:15)
--- NOTE | 2019-05-02 13:22 | NUR ---
SS following for discharge planning. SS reviewed pt chart. Pt is from home and is currently on room air. SS will continue to follow for discharge planning.
[2019-05-02] MEDS ORDERED: PROPOFOL 40 ML IV ONE (14:10)
--- NOTE | 2019-05-02 14:45 | PDOC4 ---
Operative Note Operative Note EGD and Colonoscopy with biopsies Meds propofol per anesthesia Pre-op dx Crohns disease/abd pain Post-op dx gastritis internal hemorrhoids s/p random colon biopsies Plan resume diet release home MARY KAY Peres MD May 02, 2019 14:45
[2019-05-02 15:15] VITALS: BP 131/66
--- NOTE | 2019-05-02 16:09 | PDOC3 ---
Discharge Summary Visit Information Date of Admission: May 01, 2019 Date of Discharge: May 02, 2019 Admitting Diagnosis Comment: Abdominal pain Crohn's disease Constipation? Autism Final Diagnosis Problems Medical Problems: (1) Abdominal distension Status: Acute (2) Abdominal pain secondary to constipation most likely but also with Crohn's disease Status: Acute (3) constipation Status: Acute Brief Hospital Course Allergies Allergies Coded Allergies Type Severity Reaction Last Updated Verified No Known Drug Allergies 05/02/19 No Vital Signs Vital Signs Date Time Temp Pulse Resp B/P (MAP) Pulse Ox O2 Delivery O2 Flow Rate FiO2 05/02/19 15:15 98.0 59 18 131/66 (87) 96 Room Air 98.0 Lab Results Laboratory Tests Test 05/01/19 13:18 White Blood Count 5.5 x10^3/uL (4.0-11.0) Red Blood Count 4.38 x10^6/uL (4.30-5.70) Hemoglobin 13.8 g/dL (13.0-17.5) Hematocrit 40.0 % (39.0-53.0) Mean Corpuscular Volume 91 fL (79-100) Mean Corpuscular Hemoglobin 31 pg (25-35) Mean Corpuscular Hemoglobin Concent 34 g/dL (31-37) Red Cell Distribution Width 13.1 % (11.5-14.5) Platelet Count 159 x10^3/uL (140-400) Neutrophils (%) (Auto) 54 % (31-73) Lymphocytes (%) (Auto) 33 % (24-48) Monocytes (%) (Auto) 12 % (0-9) Eosinophils (%) (Auto) 1 % (0-3) Basophils (%) (Auto) 1 % (0-3) Neutrophils # (Auto) 3.0 x10^3/uL (1.8-7.7) Lymphocytes # (Auto) 1.8 x10^3/uL (1.0-4.8) Monocytes # (Auto) 0.7 x10^3/uL (0.0-1.1) Eosinophils # (Auto) 0.1 x10^3/uL (0.0-0.7) Basophils # (Auto) 0.0 x10^3/uL (0.0-0.2) Sodium Level 136 mmol/L (136-145) Potassium Level 3.5 mmol/L (3.5-5.1) Chloride Level 100 mmol/L (98-107) Carbon Dioxide Level 26 mmol/L (21-32) Anion Gap 10 (6-14) Blood Urea Nitrogen 3 mg/dL (8-26) Creatinine 0.6 mg/dL (0.7-1.3) Estimated GFR (Cockcroft-Gault) 145.7 BUN/Creatinine Ratio 5 (6-20) Glucose Level 107 mg/dL (70-99) Calcium Level 8.6 mg/dL (8.5-10.1) Total Bilirubin 0.3 mg/dL (0.2-1.0) Aspartate Amino Transf (AST/SGOT) 14 U/L (15-37) Alanine Aminotransferase (ALT/SGPT) 33 U/L (16-63) Alkaline Phosphatase 69 U/L (46-116) C-Reactive Protein, Quantitative 2.1 mg/L (0-3.3) Total Protein 6.2 g/dL (6.4-8.2) Albumin 3.3 g/dL (3.4-5.0) Albumin/Globulin Ratio 1.1 (1.0-1.7) Lipase 81 U/L (73-393) Brief Hospital Course Mr. Sotelo is a 42-year-old gentleman with autism lives in a custodial was brought after being noticed for 5 days to complaining off abdominal discomfort. The discomfort got so bad patient engage in self-destructive behavior and hit his head against a wall on several occasions. There is evidence of the trauma on his forehead on the first evaluation. The patient was seen in consultation by GI who prepped the patient for a colonoscopy and endoscopy with the following results: EGD and Colonoscopy with biopsies Meds propofol per anesthesia Pre-op dx Crohns disease/abd pain Post-op dx gastritis internal hemorrhoids s/p random colon biopsies Plan resume diet release home tonight Patient was deemed appropriate for dismissal from the GI standpoint of view as above. He will be going back to his custodial in hemodynamically stable condition Lungs clear to auscultation with good inspiratory effort Cardiovascular exam S1-S2 regular rhythm no murmurs Discharge Information Condition at Discharge: Improved Follow Up: Weeks Disposition/Orders: D/C to Home Scheduled Dicyclomine Hcl (Dicyclomine Hcl) 20 Mg Tablet, 1 TAB PO TID for cramping, #30 Ref 1 (Reported) Entered as Reported by: ADRIANA DUKES RN on 05/01/192246 Last Action: Reviewed on 05/01/192247 by ADRIANA DUKES RN Divalproex Sodium (Divalproex Sodium Er) 500 Mg Tab.er.24h, 500 MG PO DAILY, (Reported) Last Dose 08/20/14 at 0900 Next Dose 08/21/14 am Entered as Reported by: CHATO MATTHEWS on 08/15/131755 Last Action: Reviewed on 05/01/192246 by ADRIANA DUKES RN Divalproex Sodium (Divalproex Sodium Er) 500 Mg Tab.er.24h, 1,000 MG PO HS, (Reported) Next Dose 08/20/14 at bedtime Entered as Reported by: CHATO MATTHEWS on 08/15/131755 Last Action: Reviewed on 05/01/192246 by ADRIANA DUKES RN Escitalopram Oxalate (Escitalopram Oxalate) 10 Mg Tablet, 5 MG PO DAILY for ANTI-DEPRESSANT, #30 Ref 0 (Reported) Last Dose 08/20/14 at 0900 Next Dose 08/21/14 AM Entered as Reported by: CHATO MATTHEWS on 08/15/131756 Last Action: Reviewed on 05/01/192246 by ADRIANA DUKES RN Fluticasone Propionate (Fluticasone Propionate Nasal [place]) 16 Gm [place].susp, 1 SPRAY NS DAILY, (Reported) Next dose 08/21/14 am Entered as Reported by: CHATO MATTHEWS on 08/15/131757 Last Action: Reviewed on 05/01/192246 by ADRIANA DUKES RN Lactulose (Lactulose) 10 Gm/15 Ml Solution, 10 GM PO PRN DAILY, (Reported) Entered as Reported by: LACEY KITCHEN on 08/19/14 1231 Last Action: Converted on 05/01/191625 by EVAN WIGGINS MD Lorazepam (Ativan) 1 Mg Tablet, 1 MG PO BID for agitation, (Reported) Entered as Reported by: ADRIANA DUKES RN on 05/01/192246 Last Action: Reviewed on 05/01/192247 by ADRIANA DUKES RN Mesalamine (Apriso) 0.375 Gm Cap.er.24h, 1.5 GM PO DAILY, #120 Prescribed by: AMNA GARCIA on 10/07/13 1319 Last Action: Reviewed on 05/01/192246 by ADRIANA DUKES RN Montelukast Sodium (Singulair Tablet ) 10 Mg Tablet, 10 MG PO DAILY for FOR ASTHMA, #30 Ref 0 (Reported) Next dose 08/20/14 at bedtime Entered as Reported by: CHATO MATTHEWS on 08/15/13 1759 Last Action: Reviewed on 05/01/192246 by ADRIANA DUKES RN Multivitamin (Multivitamins) 1 Each Tablet, 1 EACH PO DAILY, (Reported) Last Dose 08/20/14 at 0900 Next Dose 08/21/14 AM Entered as Reported by: CHATO MATTHEWS on 08/15/13 1800 Last Action: Reviewed on 05/01/192246 by ADRIANA DUKES RN Oxcarbazepine (Oxcarbazepine) 300 Mg Tablet, 300 MG PO BID, (Reported) Last Dose 08/20/14 at 0900 Next Dose 08/20/14 at bedtime Entered as Reported by: LADI NIELSEN on 08/19/14 1828 Last Action: Continued on 05/01/191625 by EVAN WIGGINS MD Polyethylene Glycol 3350 (Polyethylene Glycol 3350) 255 Gm Powder, 17 GM PO DAILY, #527 (Reported) Last Dose 08/20/14 at 0900 Next Dose 08/21/14 AM Entered as Reported by: LACEY KITCHEN on 08/19/14 1230 Last Action: Reviewed on 05/01/192246 by ADRIANA DUKES RN Potassium Chloride (K-Tab) 10 Meq Tablet.er, 10 MEQ PO DAILY, (Reported) Last Dose 08/20/14 at 0900 Next Dose 08/21/14 AM Entered as Reported by: MINERVA KITCHEN on 10/04/13 0314 Last Action: Converted on 05/01/191625 by EVAN WIGGINS MD Potassium Chloride (Klor-Con M20) 20 Meq Tab.er.prt, 20 MEQ PO BID for supplement, (Reported) Entered as Reported by: ADRIANA DUKES RN on 05/01/192246 Last Action: Reviewed on 05/01/192247 by ADRIANA DUKES RN Propranolol Hcl (Propranolol Hcl) 20 Mg Tablet, 1 TAB PO BID for agitation, #60 Ref 2 (Reported) Entered as Reported by: ADRIANA DUKES RN on 05/01/192246 Last Action: Reviewed on 05/01/192247 by ADRIANA DUKES RN Quetiapine Fumarate (Seroquel) 50 Mg Tablet, 1 TAB PO BID for agitation, #30 Ref 2 (Reported) Entered as Reported by: ADRIANA DUKES RN on 05/01/192246 Last Action: Reviewed on 05/01/192247 by ADRIANA DUKES RN Risperidone (Risperidone) 1 Mg Tablet, 1 MG PO QID, (Reported) Last Dose 08/20/14 at 2pm Next Dose 08/20/14 at 6pm Entered as Reported by: LADI NIELSEN on 08/19/141827 Last Action: Continued on 05/01/191625 by EVAN WIGGINS MD Risperidone (Risperidone) 2 Mg Tablet, 1 TAB PO DAILY for IED, #30 Ref 1 (Reported) Entered as Reported by: ADRIANA DUKES RN on 05/01/192246 Last Action: Reviewed on 05/01/192247 by ADRIANA DUKES RN Risperidone (Risperidone) 1 Mg Tablet, 1 TAB PO TID for IED, #30 Ref 1 (Reported) Entered as Reported by: ADRIANA DUKES RN on 05/01/192246 Last Action: Reviewed on 05/01/192247 by ADRIANA DUKES RN Trazodone Hcl (Trazodone Hcl) 150 Mg Tablet, 1 TAB PO QHS, #30 Ref 1 (Reported) Next Dose 08/20/14 at bedtime Entered as Reported by: NEPTALI JESUS on 08/19/142215 Last Action: Reviewed on 05/01/192246 by ADRIANA DUKES RN Scheduled PRN Acetaminophen (Acetaminophen) 500 Mg Tablet, 500 MG PO PRN Q6HRS PRN for PAIN / TEMP, (Reported) Entered as Reported by: LADI NIELSEN on 08/19/141827 Last Action: Reviewed on 05/01/192246 by ADRIANA DUKES RN Diphenhydramine Hcl (Diphenhydramine Hcl) 25 Mg Tablet, 25 MG PO PRN Q4HRS PRN for ITCHING, (Reported) Entered as Reported by: ADRIANA DUKES RN on 05/01/192246 Last Action: Reviewed on 05/01/192247 by ADRIANA DUKES RN Loratadine/Pseudoephedrine (Loratadine-D 24HR Tablet) 1 Each Tab.er.24h, 1 EACH PO PRN DAILY PRN for ALLERGIES, #30 Prescribed by: AMNA GARCIA on 10/07/13 1311 Last Action: Reviewed on 05/01/192246 by ADRIANA DUKES RN Risperidone (Risperidone Odt) 0.5 Mg Tab.rapdis, 0.5 MG PO PRN BID PRN for AGITATION, (Reported) Entered as Reported by: LADI NIELSEN on 08/19/141827 Last Action: Converted on 05/01/191625 by EVAN WIGGINS MD Risperidone (Risperidone Odt) 0.25 Mg Tab.rapdis, 1 MG PO DAILY PRN for AGITATION, (Reported) Entered as Reported by: ADRIANA DUKES RN on 05/01/192246 Last Action: Reviewed on 05/01/192247 by HAYLEY PAULINO HECTOR M MD May 02, 2019 16:08
--- NOTE | 2019-05-02 19:30 | NUR ---
Discharge Note: PT DISCHARGED HOME WITH SELF CARE TO LONG TERM. PT LEFT FACILITY VIA LONG TERM EMPLOYEE AND MOTHER. PT STABLE AND ALERT UPON DISCHARGE. PT PIV REMOVED FROM R WRIST WITHOUT COMPLICATIONS, BANDAGE APPLIED. PT MOTHER AND LONG TERM EMPLOYEE EDUCATED ABOUT DISCHARGE INSTRUCTIONS, DISCHARGE MEDICATIONS, AND FOLLOW-UP INSTRUCTIONS. PT ATE GI SOFT TRAY WITHOUT COMPLICATIONS. NO CONCERNS VOICED AT THIS TIME, ALL QUESTIONS ANSWERED TO THE BEST OF MY KNOWLEDGE UPON DISCHARGE. PT LEFT WITH ALL PERSONAL BELONGINGS. LACEY NGUYEN CELINE Discharge instructions and discharge home medications reviewed with Patient and a copy given. All questions have been answered and understanding verbalized.
--- NOTE | 2019-05-05 15:07 | PATHOLOGY ---
[facility] Accession Number: [id number] . 01 Material submitted: . colon - RANDOM COLON BIOPSY . 01 Clinical history: . Abdominal pain, Crohn's. . 02 Diagnosis: Colon, random, biopsy: - Multiple fragments of colonic mucosa with no significant histopathologic diagnosis. ([facility] fell[facility]; 05/05/2019) [facility] 05/05/2019 1343 Local . 02 Electronically signed: . Mychal Mccain MD, Pathologist NPI- [id number] . 01 Gross description: . Received in formalin labeled "DeepakChidi, random colon BX rule out Crohn's, IBD" is a 1.8 x 1.0 x 0.1 cm aggregate of tabor-brown soft tissue fragments. The specimen is submitted entirely in A1. ([facility]; 05/04/2019) [facility] 05/04/2019 1108 Local . 02 Pathologist provided ICD-10: R10.9, K50.90 . 02 CPT . 057694 Specimen Comment: A courtesy copy of this report has been sent to [phone], [phone] Specimen Comment: [id number], Specimen Comment: Report sent to DR MARCOS,DR WIGGINS / DR GARCIA Performed at: 01 [facility] [address], [place], [place] [id number] MD Adrian Cohen MD Phone: [phone] Performed at: 02 [facility] [address], [place] [id number] MD John Armijo MD Phone: [phone]
== END 2019-05-02 19:32 | disposition home or self-care (01) ==
LOC: ER 12:28 → 5 SOUTH 16:07
PROVIDERS: ADMIT Internal Medicine; ATTEND Internal Medicine
DX: R14.0 Abdominal distension (gaseous) (principal); K59.00 Constipation, unspecified; F84.0 Autistic disorder; K50.90 Crohn's disease, unspecified, without complications; K64.8 Other hemorrhoids; K29.70 Gastritis, unspecified, without bleeding
CPT/HCPCS: 36415; 43235; 45380; 74022; 74177; 80053; 83690; 85025; 86140; 88305; 96374; 99285; G0378; G0379; J2704; J3010; J7030; J7120; Q9967; 96361

== ENCOUNTER → 2019-05-26 | Outpatient (CLI) | payer MEDICARE, MEDICAID ==
[2019-05-02 15:15] VITALS: BP 131/66
[~2019-05-26] MED LIST changes: +DICY20TA3 PO; +DIPH25TA24 PO; +LORA-434 PO; +POTA20TA4 PO; +PROP20TA PO; +QUET50TA5 PO; +RISP0.2516 PO; +RISP2TAB3 PO
--- NOTE | 2019-05-26 16:47 | RAD ---
Small bowel follow-through. INDICATION: Constipation, diarrhea and bloating. Patient is a 43-year-old developmentally delayed man. COMPARISON: Small bowel follow-through of August 29, 2018. FINDINGS: An initial tree scout tree scout image was obtained showing a normal bowel gas pattern with no pathologic calcifications or retained contrast material. The rectal vault appeared distended with fecal debris to 11.0 cm diameter. Immediate post ingestion images showed a normal duodenal C-loop with a small duodenal diverticulum near the junction between the second and third portion. Thereafter, sequential imaging at 20 minutes, 40 minutes and 60 minutes post ingestion of contrast material showed no evidence of a fixed stricture or of bowel obstruction. No mucosal fold thickening was clearly apparent either. Spot fluoroscopic images of the terminal ileum showed no obvious mucosal irregularity. The patient was limited in his capacity to cooperate with positioning. 2 spot fluoroscopic images were acquired using a total of 0.4 minutes of fluoroscopy time. IMPRESSION: No evidence of stricture or bowel obstruction in the small bowel series. No evidence of active inflammation. Electronically signed by: Magnolia Coyne MD (05/26/2019 4:44 PM) [id number]
== END | disposition home or self-care (01) ==
LOC: RAD 10:00
PROVIDERS: ATTEND Internal Medicine Gastroenterology
DX: K57.10 Diverticulosis of small intestine without perforation or abscess without bleeding (principal)
CPT/HCPCS: 74250